=== PATIENT | male | born 1985 | race African-American/Black ===

== ENCOUNTER 2018-01-27 03:55 | Observation (INO) ==
[2018-01-27] MEDS ORDERED: PANTOPRAZOLE 40 MG VIAL IV STA (04:14)
[2018-01-27 05:42] LABS: Basophils % 0.5 % (0.0-0.8); Eosinophils # 0.5 10*3/uL (0.0-0.87); Eosinophils % 5.9 % (0.00-10.9); Hematocrit 46.1 VOL% (42.0-52.0); Hemoglobin 15.1 GM/DL (14.0-18.0); Immature Granulocytes % 0.3 %; Immature Granulocytes Absolute 0.03 #; Lymphocytes # 1.5 10*3/uL (1.4-4.0); Lymphocytes % 17.4 % (21.2-54.2); Mean Corpuscular HGB Conc 32.8 GM/DL (32-36); Mean Corpuscular Hemoglobin 29 PG (27-34); Mean Corpuscular Volume 89.7 FL (87-102); Mean Platelet Volume 10.2 FL (9.6-12.0); Monocytes # 0.9 10*3/uL (0.11-0.8); Monocytes % 9.7 % (1.7-12.7); Neutrophils # 5.9 10*3/uL (1.4-7.4); Neutrophils % 66.2 % (38.7-73.9); Platelet Count 372 T/CUMM (130-400); Red Blood Count 5.14 MC/CUMM (3.8-5.5); Red Cell Distribution Width 11.9 % (9.3-17.3); White Blood Count 8.8 T/CUMM (4-12)
[2018-01-27 05:50] LABS: PT Patient Result 10.9 SECS
[2018-01-27 06:05] LABS: Albumin 3.9 G/DL (3.4-5.0); Bilirubin,Total 0.8 MG/DL (0.2-1.0); Calcium 9.4 MG/DL (8.5-10.1); Osmolality,Calculated 275.7 MOS/KG (273-304); Potassium 3.6 MMOL/L (3.5-5.1); Total Protein 8.2 G/DL (6.4-8.3)
[2018-01-27] MEDS ORDERED: ONDANSETRON 4 MG/2 ML VIAL IV STA (06:12)
[2018-01-27] MEDS ORDERED: MORPHINE 4 MG/1 ML VIAL IV STA (06:12)
[2018-01-27] MEDS ORDERED: ACETAMINOPHEN 325 MG TABLET PO PRN (07:54)
[2018-01-27] MEDS ORDERED: ONDANSETRON 4 MG/2 ML VIAL IV PRN (07:54)
[2018-01-27] MEDS ORDERED: PANTOPRAZOLE 40 MG TABLET PO SCH (09:00)
[2018-01-27] MEDS: ENOXAPARIN 40 MG/0.4 ML SYRINGE SUBCUT SCH (09:27)
[2018-01-27] MEDS: SODIUM CHLORIDE 0.9% 1,000 ML IV SCH ×2 (09:27→19:18)
[2018-01-27] MEDS: ASPIRIN EC 325 MG TABLET PO SCH (09:28)
[2018-01-27] MEDS: CARVEDILOL 3.125 MG TABLET PO SCH ×2 (09:28→21:50)
[2018-01-27 16:27] LABS: Barbiturates Screen,Urine Negative (Negative); Benzodiazepines Screen,Urine Negative (Negative); Cannabinoid Screen,Urine Negative (Negative); Opiate Screen,Urine Positive (Negative); Phencyclidine Screen,Urine Negative (Negative)
[2018-01-27] MEDS: PANTOPRAZOLE 40 MG TABLET PO SCH (21:50)
[2018-01-28] MEDS: SODIUM CHLORIDE 0.9% 1,000 ML IV SCH ×2 (05:17→15:22)
[2018-01-28 06:59] LABS: Basophils % 0.7 % (0.0-0.8); Eosinophils # 0.7 10*3/uL (0.0-0.87); Eosinophils % 11.6 % (0.00-10.9); Hematocrit 40.5 VOL% (42.0-52.0); Hemoglobin 12.9 GM/DL (14.0-18.0); Immature Granulocytes % 0.2 %; Immature Granulocytes Absolute 0.01 #; Lymphocytes % 33.3 % (21.2-54.2); Mean Corpuscular HGB Conc 31.9 GM/DL (32-36); Mean Corpuscular Hemoglobin 30 PG (27-34); Mean Corpuscular Volume 92.7 FL (87-102); Mean Platelet Volume 10.1 FL (9.6-12.0); Monocytes # 0.8 10*3/uL (0.11-0.8); Monocytes % 13.6 % (1.7-12.7); Neutrophils # 2.4 10*3/uL (1.4-7.4); Neutrophils % 40.6 % (38.7-73.9); Platelet Count 302 T/CUMM (130-400); Red Blood Count 4.37 MC/CUMM (3.8-5.5); Red Cell Distribution Width 11.9 % (9.3-17.3)
[2018-01-28 07:24] LABS: Albumin 3.1 G/DL (3.4-5.0); Calcium 8.4 MG/DL (8.5-10.1); Osmolality,Calculated 276.4 MOS/KG (273-304); Potassium 3.7 MMOL/L (3.5-5.1); Risk Ratio 3.23; Thyroid Stimulating Hormone 1.71 uIU/ml (0.358-3.74); Total Protein 6.5 G/DL (6.4-8.3); VLDL CHOLESTEROL 15.4 MG/DL
[2018-01-28 07:38] LABS: Band Neutrophils 1 % (0-10); Eosinophils 13 % (0-10); Lymphocytes 38 % (20-55); Platelet Estimate Normal; Segmented Neutrophils 30 % (50-85); Total Cells Counted 100
[2018-01-28 07:39] LABS: Anisocytosis Slight; Macrocytosis Slight
[2018-01-28] MEDS: CARVEDILOL 3.125 MG TABLET PO SCH ×2 (09:36→21:14)
[2018-01-28] MEDS: ASPIRIN EC 325 MG TABLET PO SCH (09:37)
[2018-01-28] MEDS: ENOXAPARIN 40 MG/0.4 ML SYRINGE SUBCUT SCH (09:37)
[2018-01-28] MEDS: PANTOPRAZOLE 40 MG TABLET PO SCH ×2 (09:37→21:14)
[2018-01-28] MEDS ORDERED: chlordiazePOXIDE 25 MG CAPSULE PO PRN (14:51)
[2018-01-28] MEDS ORDERED: THIAMINE INJ 100 MG, FOLIC ACID INJ 1 MG, MULTIVITAMIN INJ 10 ML in SODIUM CHLORIDE 0.9... IV SCH (16:00)
[2018-01-29] MEDS: SODIUM CHLORIDE 0.9% 1,000 ML IV SCH (03:11)
[2018-01-29 07:45] VITALS: BP 113/79
[2018-01-29] MEDS: ENOXAPARIN 40 MG/0.4 ML SYRINGE SUBCUT SCH (09:11)
[2018-01-29] MEDS: ASPIRIN EC 325 MG TABLET PO SCH (09:12)
[2018-01-29] MEDS: CARVEDILOL 3.125 MG TABLET PO SCH (09:12)
[2018-01-29] MEDS: PANTOPRAZOLE 40 MG TABLET PO SCH (09:12)
== END 2018-01-29 10:17 | disposition home or self-care (01) ==
LOC: N.EDINP 03:55 → N.ED 03:55 → N.2E 08:54
PROVIDERS: ADMIT Hospitalist; ATTEND Hospitalist